=== PATIENT | male | born 1965 | race Caucasian/White ===

== ENCOUNTER 2020-02-28 19:21 | Day surgery (SDC) | payer BC, OTHER ==
--- NOTE | 2020-02-28 20:43 | EDM.PDOC ---
ED [facility] GENERAL MEDICAL PROBLEM - General Chief Complaint: Genitourinary Problem Stated Complaint: URINARY PROBLEM Time Seen by Provider: 02/28/20 20:12 - History of Present Illness INITIAL COMMENTS - FREE TEXT/NARRATIVE: HISTORY AND PHYSICAL: History of present illness: This 54-year-old male presents to the emergency department complaining of urinary retention sensation and uncontrolled incontinence while driving home. He states that over the last several hours he felt the need or urge like he needed to pee but could not. He had this in the past and had some type of stricture inside the urethra. This was helped secondary to dilatation. He did not have any prostate problems. This was done in [place] so we do not have a record or a urologist to follow-up with. He reports today that he has a sensation of needing to urinate but cannot. He also has overflow incontinence. He denies any lower extremity pain or weakness, and no back pain. Review of systems: A 10-point review of systems, other than pertinent positives and negatives as stated per HPI, is otherwise negative. Past medical history: As per history of present illness and as reviewed below otherwise noncontributory. Surgical history: As per history of present illness and as reviewed below otherwise noncontributory. Social history: No reported history of drug or alcohol abuse. Family history: As per history of present illness and as reviewed below otherwise noncontributory. Physical exam: VITAL SIGNS: Reviewed. GENERAL: Very mild distress. Concerned about his condition HEAD: No signs of head trauma. EYES: Pupils are equal. Extraocular motions intact. EARS: Hearing grossly intact. MOUTH: Oropharynx is normal. NECK: No adenopathy, no JVD. CHEST: Chest with clear breath sounds bilaterally. No wheezes, rales, or rhonchi. CARDIAC: Regular rate and rhythm. Normal S1 and S2, without murmurs, gallops, or rubs. VASCULAR: Peripheral pulses normal and equal in all extremities. ABDOMEN: Soft, without detectable tenderness. No sign of distention. No rebound or guarding, and no masses palpated. MUSCULOSKELETAL: Good range of motion of all major joints. Extremities without clubbing, cyanosis or edema. NEUROLOGIC EXAM: Alert and oriented x 3. No focal sensory or motor deficits. Speech normal. Follows commands. PSYCHIATRIC: Mood normal. SKIN: No rash or lesions. Initial Differential Diagnosis & Plan: Urinary stricture, urinary obstruction, bladder spasm, cauda equina syndrome There is no distal neurovascular dysfunction. Bilateral lower extremities are normal in function. There is no radicular pain or back pain. This makes cauda equina syndrome very unlikely. The patient does have a history of urethral stricture. This is likely the cause. He is uncircumcised. We will place a Toussaint catheter and see if this relieves the obstruction. Bladder scan still pending. UA and urine culture as indicated. Definitive disposition and diagnosis as appropriate pending reevaluation and review of above. - Related Data Allergies Allergy/AdvReac Type Severity Reaction Status Date / Time No Known Allergies Allergy Verified 02/28/20 21:16 Home Meds: Home Meds . [Unable to Verify Home Med List] 02/28/20 [History] ED ROS GENERAL - Review of Systems Review Of Systems: See Below (noted) ED EXAM, RENAL/ - Physical Exam Exam: See Below (noted) Course - Vital Signs Last Recorded V/S: Last Vital Signs Temp 98.6 F 02/29/20 03:02 Pulse 75 02/29/20 03:27 Resp 13 02/29/20 03:27 BP 147/84 H 02/29/20 03:27 Pulse Ox 94 L 02/29/20 03:27 - Orders/Labs/Meds Orders: Active Orders 24 hr Category Date Time Status Patient Status [ADT] Routine ADT 02/29/20 00:45 Active Blood Glucose Check, Bedside [RC] PRN Care 02/29/20 03:17 Active Insert Toussaint Catheter [Insert Urinary Catheter] [OM.PC] Care 02/28/20 20:30 Ordered Q24H Notify Provider Vital Signs [RC] ASDIRECTED Care 02/29/20 03:17 Active Oxygen Therapy [RC] PRN Care 02/29/20 03:17 Active RT Aerosol Therapy [RC] ASDIRECTED Care 02/29/20 03:17 Active RT Aerosol Therapy [RC] ASDIRECTED Care 02/29/20 03:17 Active Ready for Discharge [RC] PER UNIT ROUTINE Care 02/29/20 02:58 Active Urinary Catheter Assessment [RC] ASDIRECTED Care 02/28/20 20:20 Active CBC WITH AUTO DIFF [HEME] Routine Lab 02/29/20 05:11 Ordered CULTURE URINE [RM] Stat Lab 02/28/20 20:15 Received Resuscitation Status Routine Resus Stat 02/29/20 02:55 Ordered Labs: Laboratory Tests 02/28/20 02/28/20 02/29/20 Range/Units 20:15 21:07 00:49 Sodium 135 L (136-148) mmol/L Potassium 4.0 (3.5-5.1) mmol/L Chloride 102 (98-107) mmol/L Carbon Dioxide 28.1 (21.0-32.0) mmol/L BUN 13 (7.0-18.0) mg/dL Creatinine 1.1 (0.8-1.3) mg/dL Est Cr Clr Drug Dosing 83.67 mL/min Estimated GFR (MDRD) > 60.0 ml/min Glucose 102 (74-106) mg/dL Calcium 8.8 (8.5-10.1) mg/dL Urine Color YELLOW Urine Appearance SLT CLOUDY Urine pH 6.0 (5.0-8.0) Ur Specific [place] >= 1.030 (1.001-1.035) Urine Protein 30 H (NEGATIVE) mg/dL Urine Glucose (UA) NEGATIVE (NEGATIVE) mg/dL Urine Ketones NEGATIVE (NEGATIVE) mg/dL Urine Occult Blood MODERATE H (NEGATIVE) Urine Nitrite NEGATIVE (NEGATIVE) Urine Bilirubin NEGATIVE (NEGATIVE) Urine Urobilinogen 0.2 (<2.0) EU/dL Ur Leukocyte Esterase SMALL H (NEGATIVE) Urine RBC NONE SEEN (0-2/HPF) Urine WBC 4-6 (0-5/HPF) Ur Epithelial Cells RARE (NONE-FEW) Urine Bacteria FEW (NEGATIVE) Urine Mucus LIGHT (NONE-MOD) SARS CoV-2 RNA Rapid CLAUDE NEGATIVE (NEGATIVE) Meds: Medications Discontinued Medications Generic Name Dose Route Start Last Admin Trade Name Freq PRN Reason Stop Dose Admin Albuterol 2.5 mg 02/29/20 03:17 Proventil Neb Soln NEB ONETIME PRN Wheezing Atropine Sulfate 0.5 mg 02/29/20 03:17 Atropine 0.1 Mg/Ml IVPUSH ASDIRECTED PRN Hypo-perfusion Atropine Sulfate 1 mg 02/29/20 03:17 Atropine 0.1 Mg/Ml IVPUSH ASDIRECTED PRN Hypo-Perfusion Cefazolin Sodium/Dextrose Confirm 02/29/20 02:24 Ancef Administered 02/29/20 02:25 Dose 2 gm IV .STK-MED ONE Cephalexin 1,000 mg 02/28/20 20:53 02/28/20 21:25 Keflex PO 02/28/20 20:54 1,000 mg ONETIME ONE Administration Dextrose/Water 50 ml 02/29/20 03:17 Dextrose 50% In Water IVPUSH ASDIRECTED PRN Hypoglycemia Epinephrine HCl 1 mg 02/29/20 03:17 Epinephrine 1:10,000 IVPUSH ASDIRECTED PRN ACLS Guidelines Fentanyl Confirm 02/29/20 01:36 Sublimaze Administered 02/29/20 01:37 Dose 0 mcg .ROUTE .STK-MED ONE Fentanyl Confirm 02/29/20 02:44 Sublimaze Administered 02/29/20 02:45 Dose 100 mcg .ROUTE .STK-MED ONE Fentanyl 50 mcg 02/29/20 03:17 Sublimaze IVPUSH Q5M PRN Pain Cefazolin Sodium/Dextrose Confirm 02/29/20 02:39 Ancef Administered 02/29/20 02:40 Dose 50 mls @ as directed .ROUTE .STK-MED ONE Ketorolac Tromethamine Confirm 02/29/20 02:51 Toradol Administered 02/29/20 02:52 Dose 30 mg .ROUTE .STK-MED ONE Lidocaine HCl Confirm 02/29/20 01:36 Xylocaine-Mpf 1% Administered 02/29/20 01:37 Dose 5 ml .ROUTE .STK-MED ONE Lidocaine/Tetracaine Confirm 02/28/20 21:18 02/28/20 21:30 Let Soln Administered 02/28/20 21:19 Not Given Dose 1 ml .ROUTE .STK-MED ONE Lidocaine/Tetracaine 1 ml 02/28/20 21:19 02/28/20 21:28 Let Soln TOP 02/28/20 21:20 1 ml ONETIME ONE Administration Metoprolol Tartrate Confirm 02/29/20 02:32 Lopressor Administered 02/29/20 02:33 Dose 5 mg .ROUTE .STK-MED ONE Midazolam HCl Confirm 02/29/20 01:36 Versed 1 Mg/Ml Administered 02/29/20 01:37 Dose 2 mg .ROUTE .STK-MED ONE Naloxone HCl 0.1 mg 02/29/20 03:17 Narcan IVPUSH ASDIRECTED PRN Respiratory Depression Ondansetron HCl Confirm 02/29/20 02:51 Zofran Administered 02/29/20 02:52 Dose 4 mg .ROUTE .STK-MED ONE Propofol Confirm 02/29/20 01:36 Diprivan 20 Ml Administered 02/29/20 01:37 Dose 200 mg .ROUTE .STK-MED ONE - Re-Assessments/Exams Free Text/Narrative Re-Assessment/Exam: 02/29/20 00:17 Multiple attempts Toussaint catheter by myself and nursing staff it appears the patient has a retracted penis into his foreskin. He is circumcised. But given his obesity, what appears to be a chronic yeast infection of the penis and foreskin and urinary retention I will ask the urologist to please see him. Prior to me making multiple attempts at the Toussaint catheter. Dr. Edwards, urology has come to the bedside and will attempt to place Toussaint catheter also. Departure - Departure Time of Disposition: 00:00 Disposition: Still A Patient 30 Clinical Impression: Urinary retention - Discharge Information *PRESCRIPTION DRUG MONITORING PROGRAM REVIEWED*: Not Applicable *COPY OF PRESCRIPTION DRUG MONITORING REPORT IN PATIENT ALETA: Not Applicable Sepsis Event Note (ED) - Evaluation Sepsis Screening Result: No Definite Risk - Focused Exam Vital Signs: Vital Signs Temp Pulse Resp BP Pulse Ox 02/29/20 03:27 75 13 147/84 H 94 L 02/29/20 03:22 75 18 155/87 H 94 L 02/29/20 03:17 79 21 H 160/96 H 94 L 02/29/20 03:12 76 21 H 154/93 H 94 L 02/29/20 03:07 72 23 H 147/90 H 94 L 02/29/20 03:02 98.6 F 82 22 H 149/106 H 99 02/29/20 01:32 105 H 20 139/109 H 94 L 02/28/20 20:00 97.2 F 97 16 187/111 H 94 L - My Orders Last 24 Hours: My Active Orders 02/28/20 20:15 CULTURE URINE [RM] Stat 02/28/20 20:20 Urinary Catheter Assessment [RC] ASDIRECTED 02/28/20 20:30 Insert Toussaint Catheter [Insert Urinary Catheter] [OM.PC] Q24H 02/29/20 00:45 Patient Status [ADT] Routine - Assessment/Plan Last 24 Hours: My Active Orders 02/28/20 20:15 CULTURE URINE [RM] Stat 02/28/20 20:20 Urinary Catheter Assessment [RC] ASDIRECTED 02/28/20 20:30 Insert Toussaint Catheter [Insert Urinary Catheter] [OM.PC] Q24H 02/29/20 00:45 Patient Status [ADT] Routine
[2020-02-28] MEDS ORDERED: Cephalexin 500 MG Cap PO ONE (20:53)
[2020-02-28] MEDS ORDERED: Lidocaine/EPINEPHrine/Tetracaine Soln 1 ML ONE (21:18)
[2020-02-28] MEDS ORDERED: Lidocaine/EPINEPHrine/Tetracaine Soln 1 ML TOP ONE (21:19)
[2020-02-28 21:38] LABS: BLOOD UREA NITROGEN,BUN 13 mg/dL (7.0-18.0); CARBON DIOXIDE,CO2 28.1 mmol/L (21.0-32.0); CHLORIDE,CL 102 mmol/L (98-107); GLUCOSE RANDOM 102 mg/dL (74-106); SODIUM,NA 135 mmol/L (136-148)
[2020-02-29] MEDS ORDERED: Midazolam 1 MG/ML 2 ML SDV ONE (01:36)
[2020-02-29] MEDS ORDERED: fentaNYL 100 MCG/2 ML SDV ONE ×2 (01:36→02:44)
[2020-02-29] MEDS ORDERED: Propofol 200 MG/20 ML SDV ONE (01:36)
[2020-02-29] MEDS ORDERED: ceFAZolin/Dextrose,Iso-Osmotic 2 GM/50 ML Duplex Bag IV ONE (02:24)
[2020-02-29] MEDS ORDERED: Metoprolol Tartrate 5 MG/5 ML SDV ONE (02:32)
[2020-02-29] MEDS ORDERED: Ondansetron 4 MG/2 ML SDV ONE (02:51)
[2020-02-29] MEDS ORDERED: Ketorolac 30 MG/ML SDV ONE (02:51)
--- NOTE | 2020-02-29 03:14 | PCM.PREANE ---
Preanesthetic Assessment - Anesthesia/Transfusion/Family Hx Anesthesia History: No Prior Anesthesia Family History of Anesthesia Reaction: No - Review of Systems General: No Symptoms Pulmonary: No Symptoms Cardiovascular: No Symptoms Gastrointestinal: No Symptoms Neurological: No Symptoms Other: Reports: None - Physical Assessment NPO Status Date: 02/29/20 NPO Status Time: 00:50 (sip of water) Vital Signs: Last Vital Signs Temp 37.0 C 02/29/20 03:02 Pulse 82 02/29/20 03:02 Resp 22 H 02/29/20 03:02 BP 149/106 H 02/29/20 03:02 Pulse Ox 99 02/29/20 03:02 The vital signs above are not the vitals preop. Preop vitals are 139/109, 20, 105, spO2 94% room air, temp 37.0 Height: 1.8 m Weight: 163.293 kg ASA Class: 3E Mental Status: Alert & Oriented x3 Airway Class: Mallampati = 2 Dentition: Reports: Normal Dentition, Caries Thyro-Mental Finger Breadths: 3 Mouth Opening Finger Breadths: 3 ROM/Head Extension: Full Lungs: Clear to Auscultation, Normal Respiratory Effort Cardiovascular: Regular Rate, Regular Rhythm - Lab Values: Laboratory Last Values Sodium 135 mmol/L (136-148) L 02/28/20 21:07 Potassium 4.0 mmol/L (3.5-5.1) 02/28/20 21:07 Chloride 102 mmol/L (98-107) 02/28/20 21:07 Carbon Dioxide 28.1 mmol/L (21.0-32.0) 02/28/20 21:07 BUN 13 mg/dL (7.0-18.0) 02/28/20 21:07 Creatinine 1.1 mg/dL (0.8-1.3) 02/28/20 21:07 Est Cr Clr Drug Dosing 83.67 mL/min 02/28/20 21:07 Estimated GFR (MDRD) > 60.0 ml/min 02/28/20 21:07 Glucose 102 mg/dL (74-106) 02/28/20 21:07 Calcium 8.8 mg/dL (8.5-10.1) 02/28/20 21:07 Urine Color YELLOW 02/28/20 20:15 Urine Appearance SLT CLOUDY 02/28/20 20:15 Urine pH 6.0 (5.0-8.0) 02/28/20 20:15 Ur Specific [place] >= 1.030 (1.001-1.035) 02/28/20 20:15 Urine Protein 30 mg/dL (NEGATIVE) H 02/28/20 20:15 Urine Glucose (UA) NEGATIVE mg/dL (NEGATIVE) 02/28/20 20:15 Urine Ketones NEGATIVE mg/dL (NEGATIVE) 02/28/20 20:15 Urine Occult Blood MODERATE (NEGATIVE) H 02/28/20 20:15 Urine Nitrite NEGATIVE (NEGATIVE) 02/28/20 20:15 Urine Bilirubin NEGATIVE (NEGATIVE) 02/28/20 20:15 Urine Urobilinogen 0.2 EU/dL (<2.0) 02/28/20 20:15 Ur Leukocyte Esterase SMALL (NEGATIVE) H 02/28/20 20:15 Urine RBC NONE SEEN (0-2/HPF) 02/28/20 20:15 Urine WBC 4-6 (0-5/HPF) 02/28/20 20:15 Ur Epithelial Cells RARE (NONE-FEW) 02/28/20 20:15 Urine Bacteria FEW (NEGATIVE) 02/28/20 20:15 Urine Mucus LIGHT (NONE-MOD) 02/28/20 20:15 SARS CoV-2 RNA Rapid CLAUDE NEGATIVE (NEGATIVE) 02/29/20 00:49 - Allergies Allergies/Adverse Reactions: Allergies Allergy/AdvReac Type Severity Reaction Status Date / Time No Known Allergies Allergy Verified 02/28/20 21:16 - Acknowledgements Anesthesia Type Planned: General Anesthesia Pt an Appropriate Candidate for the Planned Anesthesia: Yes Alternatives and Risks of Anesthesia Discussed w Pt/Guardian: Yes Pt/Guardian Understands and Agrees with Anesthesia Plan: Yes PreAnesthesia Questionnaire - Past Health History Medical/Surgical History: Denies Medical/Surgical History HEENT History: Reports: Other (See Below) (wears glasses) Cardiovascular History: Reports: Hypertension (elevated in ED) Respiratory History: Reports: Sleep Apnea (probable. never been tested) Gastrointestinal History: Reports: None Genitourinary History: Reports: Retention, Urinary Musculoskeletal History: Reports: None Neurological History: Reports: None Psychiatric History: Reports: None Endocrine/Metabolic History: Reports: Obesity/BMI 30+ (super obese) Hematologic History: Reports: None - Past Surgical History Male Surgical History: Reports: Other (See Below) (ureteroscopy in the past for urethral) - History Comment History Comment: etoh occasional. waiting for covid test which was negative, then patient taken to OR. - SUBSTANCE USE Tobacco Use Status *Q: Former Tobacco User (quit 10 years ago) Recreational Drug Use History: No - HOME MEDS Home Medications: Home Meds . [Unable to Verify Home Med List] 02/28/20 [History] - CURRENT (IN HOUSE) MEDS Current Meds: Current Medications Discontinued Medications Cefazolin Sodium/Dextrose (Ancef) Confirm Administered Dose 2 gm IV .STK-MED ONE Stop: 02/29/20 02:25 Cephalexin (Keflex) 1,000 mg PO ONETIME ONE Stop: 02/28/20 20:54 Last Admin: 02/28/20 21:25 Dose: 1,000 mg Documented by: Fentanyl (Sublimaze) Confirm Administered Dose 100 mcg .ROUTE .STK-MED ONE Stop: 02/29/20 01:37 Fentanyl (Sublimaze) Confirm Administered Dose 100 mcg .ROUTE .STK-MED ONE Stop: 02/29/20 02:45 Cefazolin Sodium/Dextrose (Ancef) Confirm Administered Dose 50 mls @ as directed .ROUTE .STK-MED ONE Stop: 02/29/20 02:40 Ketorolac Tromethamine (Toradol) Confirm Administered Dose 30 mg .ROUTE .STK-MED ONE Stop: 02/29/20 02:52 Lidocaine HCl (Xylocaine-Mpf 1%) Confirm Administered Dose 5 ml .ROUTE .STK-MED ONE Stop: 02/29/20 01:37 Lidocaine/Tetracaine (Let Soln) Confirm Administered Dose 1 ml .ROUTE .STK-MED ONE Stop: 02/28/20 21:19 Last Admin: 02/28/20 21:30 Dose: Not Given Documented by: Lidocaine/Tetracaine (Let Soln) 1 ml TOP ONETIME ONE Stop: 02/28/20 21:20 Last Admin: 02/28/20 21:28 Dose: 1 ml Documented by: Metoprolol Tartrate (Lopressor) Confirm Administered Dose 5 mg .ROUTE .STK-MED ONE Stop: 02/29/20 02:33 Midazolam HCl (Versed 1 Mg/Ml) Confirm Administered Dose 2 mg .ROUTE .STK-MED ONE Stop: 02/29/20 01:37 Ondansetron HCl (Zofran) Confirm Administered Dose 4 mg .ROUTE .STK-MED ONE Stop: 02/29/20 02:52 Propofol (Diprivan 20 Ml) Confirm Administered Dose 200 mg .ROUTE .STK-MED ONE Stop: 02/29/20 01:37
[2020-02-29] MEDS ORDERED: Albuterol 0.083% 2.5 MG/3 ML Neb Soln NEB PRN (03:17)
[2020-02-29] MEDS ORDERED: Naloxone 0.4 MG/ML Syringe IVPUSH PRN (03:17)
[2020-02-29] MEDS ORDERED: fentaNYL 100 MCG/2 ML SDV IVPUSH PRN (03:17)
[2020-02-29] MEDS ORDERED: 50% Dextrose in Water 50 ML Syringe IVPUSH PRN (03:17)
[2020-02-29] MEDS ORDERED: EPINEPHrine 1:10,000 1 MG/10 ML Syringe IVPUSH PRN (03:17)
[2020-02-29] MEDS ORDERED: Atropine 0.1 MG/ML 10 ML Syringe IVPUSH PRN ×2 (03:17)
--- NOTE | 2020-02-29 03:25 | PCM.POSTAN ---
POST ANESTHESIA ASSESSMENT - MENTAL STATUS Mental Status: Alert, Oriented - VITAL SIGNS Vital Signs: Last Vital Signs Temp 37.0 C 02/29/20 03:02 Pulse 79 02/29/20 03:17 Resp 21 H 02/29/20 03:17 BP 160/96 H 02/29/20 03:17 Pulse Ox 94 L 02/29/20 03:17 - RESPIRATORY Respiratory Status: Respiratory Rate WNL, Airway Patent, O2 Saturation Stable - CARDIOVASCULAR CV Status: Pulse Rate WNL, Blood Pressure Stable - GASTROINTESTINAL GI Status: No Symptoms - PAIN Pain Score: 0 - POST OP HYDRATION Hydration Status: Adequate & Stable - OBSERVATIONS Free Text/Narrative:: The patient tolerated the procedure well. There were no apparent anesthetic complications at this time. Discharge to floor per criteria.
--- NOTE | 2020-02-29 04:02 | OR ---
SURGEON: Elizabeth Arevalo M.D. DATE OF PROCEDURE: 02/29/2020 PRIMARY SURGEON: Elizabeth Arevalo M.D. PREOPERATIVE DIAGNOSES: 1. Urethral stricture. 2. Phimosis. 3. Chronic balanitis. SURGERY: 1. Urethral dilatation. 2. Placement of a Toussaint catheter. DESCRIPTION OF PROCEDURE: The patient was under anesthesia in the dorsal lithotomy position and prepped and draped with sterile drapes. A Reynaldo sound, 12-Venezuelan, was introduced into the urethra. There was some dilating effect to that at the beginning and throughout, but I was able to dilate the urethra, including the meatus, which still was not visible, to 20-Venezuelan and then put a 16-Venezuelan Toussaint catheter into the bladder. Further treatment will be decided later. He already had a circumcision, so taking additional skin from the penile shaft is going to make the penis even look smaller because it is already somewhat buried, probably a dorsal slit to start with, but I will the patient when I see him again. The patient tolerated the procedure well. PAGE / NEGRITO /[id number]
--- NOTE | 2020-02-29 05:50 | PCM48HPAN ---
Post Anesthesia Note - EVALUATION WITHIN 48HRS OF ANESTHETIC Vital Signs in Normal Range: Yes Patient Participated in Evaluation: Yes Respiratory Function Stable: Yes Airway Patent: Yes Cardiovascular Function Stable: Yes Hydration Status Stable: Yes Pain Control Satisfactory: Yes Nausea and Vomiting Control Satisfactory: Yes Mental Status Recovered: Yes Vital Signs: Last Vital Signs Temp 37.0 C 02/29/20 03:02 Pulse 75 02/29/20 03:27 Resp 13 02/29/20 03:27 BP 147/84 H 02/29/20 03:27 Pulse Ox 94 L 02/29/20 03:27 - COMMENTS/OBSERVATIONS Free Text/Narrative:: The patient has no complaints at this time. There were no apparent anesthetic complications at this time.
--- NOTE | 2020-02-29 08:19 | CONS ---
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 In 2007, apparently he had urological procedure for urethral stricture and he had a catheter put in for several days after that. Earlier today, he was unable to void. Eventually, he passed few drops and ended up in the emergency room. MEDICAL HISTORY: Hypertension. SURGICAL HISTORY: Otherwise negative. PHYSICAL EXAMINATION: GENERAL: He is alert. He is oriented. He is morbidly obese. HEART: Normal sinus rhythm. LUNGS: Clear. ABDOMEN: Obese. GENITOURINARY: External genitalia, he has balanitis xerotica obliterans. The head of the penis is not visible. Rest of the exam was negative. Attempts at putting a catheter while in the ER were not successful. Even going all the way down to 8-Arabic that would not go in, and since I was not able to see the head of the penis because of the narrowing of the foreskin and the scarring, I am going to have to put him to sleep and possibly use the cystoscope to identify where the urethral meatus is. So, that is the plan. PAGE MAHAN /[id number]
== END 2020-02-29 08:43 | disposition home or self-care (01) ==
LOC: MW.ED 19:21 → MW.SDS 02-29 00:45 → MW.MS 02-29 03:19 → MW.SDS 02-29 08:43
PROVIDERS: ATTEND Urology
DX: N35.919 Unspecified urethral stricture, male, unspecified site (principal); N47.1 Phimosis; N48.1 Balanitis; I10 Essential (primary) hypertension; E66.09 Other obesity due to excess calories; Z01.812 Encounter for preprocedural laboratory examination; Z20.828 Contact with and (suspected) exposure to other viral communicable diseases; Z79.899 Other long term (current) drug therapy; Z68.43 Body mass index [BMI] 50.0-59.9, adult
CPT/HCPCS: 36415; 53899; 80048; 81001; 85025; 87086; 87635; 99283; A9270; J0690; J1885; J2001; J2250; J2405; J2704; J3010; J3490; 00910; U0002